=== PATIENT | female | born 1985 | race Caucasian/White ===

== ENCOUNTER → 2018-10-29 | Outpatient (CLI) | payer BC | LOC: OD 12:30 | PROVIDERS: ATTEND Obstetrics & Gynecology Reproductive Endocrinology | DX: Z32.01 Encounter for pregnancy test, result positive (principal) | CPT/HCPCS: 36415; 84144; 84702 ==

== ENCOUNTER → 2018-11-01 | Outpatient (CLI) | payer BC | LOC: OD 10:22 | PROVIDERS: ATTEND Obstetrics & Gynecology Reproductive Endocrinology | DX: N97.9 Female infertility, unspecified (principal); Z32.01 Encounter for pregnancy test, result positive | CPT/HCPCS: 36415; 84144; 84702 ==

== ENCOUNTER 2019-06-06 16:26 | Outpatient (CLI) | payer BC ==
--- NOTE | 2019-06-06 17:43 | Non Stress Test Report ---
Non Stress Test Datetime Report Generated by CPN: 06/06/2019 17:43 DEMOGRAPHIC Test Number: 1 EGA NST: 34.6 INDICATION Indication for Study (NST) Other: Repeat NST, NR in office VITAL SIGNS Temperature - NST: 98.8 Pulse - NST: 80 RESP - NST: 16 NBPSYS NST: 111 NBPDIA NST: 56 MONITORING Monitor Explained: Monitor Explained; Test Explained; Patient Verbalized Understanding Time on Monitor: 06/06/2019 16:52 Time off Monitor: 06/06/2019 17:38 NST Duration: 46 NST INTERVENTIONS NST Interventions: PO Hydration; Reposition Patient BABY A: [id number] BABY A Movement : Present Contraction Frequency : 0 FHR Baseline : 125 Accelerations : 15X15 Decelerations : None Variability : Moderate 6-25bpm NST Review: Meets Criteria for Reactive NST NST Review and Verified By : Ismael Wolfe RN NST Results: Reactive NST REPORT Report Trigger: Send Report
== END 2019-06-06 17:40 | disposition home or self-care (01) ==
LOC: LC 16:26
PROVIDERS: ATTEND Obstetrics & Gynecology
PROC: 4A1HXCZ Monitoring of Products of Conception, Cardiac Rate, External Approach (ICD-10-PCS; principal; 2019-06-06)
DX: O09.523 Supervision of elderly multigravida, third trimester (principal); Z3A.34 34 weeks gestation of pregnancy
CPT/HCPCS: 59025

== ENCOUNTER 2019-07-15 04:40 | Outpatient (CLI) | payer BC ==
[2019-07-15 05:47] LABS: APPEARANCE,URINE CLEAR; BILIRUBIN,URINE NEGATIVE (NEGATIVE); COLOR,URINE YELLOW; GLUCOSE, URINE NEGATIVE (NEGATIVE); KETONES,URINE NEGATIVE (NEGATIVE); LEUKOCYTE ESTERASE,URINE SMALL (NEGATIVE); NITRITE,URINE NEGATIVE (NEGATIVE); PROTEIN,URINE NEGATIVE (NEGATIVE); UROBILINOGEN,URINE NEGATIVE mg/dL (<2.0)
--- NOTE | 2019-07-15 05:54 | Non Stress Test Report ---
Non Stress Test Datetime Report Generated by CPN: 07/15/2019 05:54 DEMOGRAPHIC EGA NST: 40.3 INDICATION Indication for Study (NST) Other: LC- decreased movement MONITORING Monitor Explained: Monitor Explained; Test Explained; Patient Verbalized Understanding Time on Monitor: 07/15/2019 04:44 Time off Monitor: 07/15/2019 05:53 NST Duration: 69 NST INTERVENTIONS NST Interventions: PO Hydration; Reposition Patient Physician Notified NST: Dr. Geiger BABY A: [id number] BABY A Movement : Present Contraction Frequency : irritability FHR Baseline : 130 Accelerations : 15X15 Decelerations : None Variability : Moderate 6-25bpm NST Review: Meets Criteria for Reactive NST NST Review and Verified By : TOMMIE Omer Results: Reactive NST REPORT Report Trigger: Send Report
[2019-07-15 06:02] LABS: URINE AMPHETAMINES SCREEN NEGATIVE; URINE BARBITURATES SCREEN NEGATIVE; URINE BENZODIAZEPINES SCREEN NEGATIVE; URINE COCAINE SCREEN NEGATIVE; URINE MARIJUANA (THC) SCREEN NEGATIVE; URINE METHADONE SCREEN NEGATIVE; URINE PHENCYCLIDINE SCREEN NEGATIVE
== END 2019-07-15 05:55 | disposition home or self-care (01) ==
LOC: LC 04:40
PROVIDERS: ATTEND Student in an Organized Health Care Education/Training Program
DX: O36.8130 Decreased fetal movements, third trimester, not applicable or unspecified (principal); Z3A.40 40 weeks gestation of pregnancy
CPT/HCPCS: 59025; 80307; 81005

== ENCOUNTER 2019-07-16 05:37 | Inpatient (IN) | payer BC ==
[2019-07-16] MEDS ORDERED: CEFAZOLIN 2 GM/D5W RTU 2 GM/50 ML RTUPB IV PRN (06:09)
[2019-07-16] MEDS ORDERED: RINGERS SOLUTION,LACTATED 1,000 ML IV PRN ×2 (06:09→09:10)
[2019-07-16] MEDS ORDERED: RINGERS SOLUTION,LACTATED 1,000 ML IV ONE (06:15)
[2019-07-16 06:55] LABS: ABSOLUTE BASOPHILS # (AUTO) 0.1 10^3/uL (0.0-0.2); ABSOLUTE EOSINOPHILS # (AUTO) 0.1 10^3/uL (0.0-0.6); ABSOLUTE LYMPHOCYTES (AUTO) 2.6 10^3/uL (0.5-4.7); ABSOLUTE MONOCYTES (AUTO) 1.3 10^3/uL (0.1-1.4); BASOPHILS % (AUTO) 0.8 % (0-2); EOSINOPHILS % (AUTO) 0.4 % (0-6); HEMATOCRIT 38.3 % (36.0-47.0); HEMOGLOBIN 13.5 g/dL (12.0-15.5); LYMPHOCYTES % (AUTO) 18.5 % (13-45); MEAN CORPUSCULAR HEMOGLOBIN 32.8 pg (27.0-33.4); MEAN CORPUSCULAR HGB CONC 35.2 g/dL (32.0-36.0); MEAN CORPUSCULAR VOLUME 93 fl (80-97); MONOCYTES % (AUTO) 9.1 % (3-13); RED BLOOD COUNT 4.11 10^6/uL (3.72-5.28); SEGMENTED NEUTROPHILS % (AUTO) 71.2 % (42-78); TOTAL CELLS COUNTED % (AUTO) 100 %; WHITE BLOOD COUNT 14.1 10^3/uL (4.0-10.5)
[2019-07-16 07:23] LABS: PLATELET COUNT 180 10^3/uL (150-450)
[2019-07-16] MEDS ORDERED: CEFAZOLIN SODIUM 2 GM in DEXTROSE 5%-WATER 100 ML IV ONE (07:30)
[2019-07-16] MEDS ORDERED: PHENYLEPHRINE HCL INJ/PF 10 MG/1 ML SDV ONE (07:41)
[2019-07-16] MEDS ORDERED: MIDAZOLAM 2 MG/2 ML INJ ONE (07:41)
[2019-07-16] MEDS ORDERED: OXYTOCIN 10 UNIT/ML VIAL ONE (07:41)
[2019-07-16] MEDS ORDERED: GLYCOPYRROLATE INJ 0.4 MG/2 ML VIAL ONE (07:41)
[2019-07-16] MEDS ORDERED: KETOROLAC TROMETHAMINE INJ/PF 30 MG/1 ML SDV ONE (07:41)
[2019-07-16] MEDS ORDERED: ONDANSETRON HCL INJ/PF 4 MG/2 ML SDV ONE (07:41)
[2019-07-16] MEDS ORDERED: OXYTOCIN/NORMAL SALINE 20 UNIT/1,000 ML RTUINJ ONE (07:41)
[2019-07-16] MEDS ORDERED: EPHEDRINE SULFATE INJ 50 MG/1 ML AMPULE ONE (07:41)
[2019-07-16] MEDS ORDERED: FENTANYL CITRATE INJ/PF 100 MCG/2 ML AMPUL ONE (07:41)
[2019-07-16] MEDS ORDERED: MEPERIDINE HCL/PF INJ 25 MG/1 ML DISP.SYRIN IV PRN (08:31)
[2019-07-16] MEDS ORDERED: FENTANYL CITRATE INJ/PF 100 MCG/2 ML AMPUL IV PRN ×3 (08:31)
[2019-07-16] MEDS ORDERED: OXYCODONE-ACETAMINOPHEN 5-325 MG TABLET PO PRN ×4 (08:31→09:10)
[2019-07-16] MEDS ORDERED: PROMETHAZINE HCL INJ 25 MG/1 ML VIAL IV PRN ×3 (08:31→09:10)
[2019-07-16] MEDS ORDERED: DIPHENHYDRAMINE HCL 50 MG/ML VIAL IV PRN (08:31)
[2019-07-16] MEDS ORDERED: MORPHINE SULFATE 10 MG/ML INJ IV PRN (08:31)
[2019-07-16] MEDS ORDERED: HYDROMORPHONE HCL INJ/PF 2 MG/ML AMPULE IV PRN (09:10)
[2019-07-16] MEDS ORDERED: NORMAL SALINE IV PRN (09:10)
[2019-07-16] MEDS ORDERED: ACETAMINOPHEN 1,000 MG/100 ML RTUPB IV PRN (09:10)
[2019-07-16] MEDS ORDERED: MEASLES,MUMPS&RUBELLA VACC/PF 0.5 ML VIAL SUBCUT PRN (09:10)
[2019-07-16] MEDS ORDERED: SIMETHICONE 80 MG TAB.CHEW PO PRN (09:10)
[2019-07-16] MEDS ORDERED: DIPH/PERTUSS(ACELL)/TETANUS VAC/PF 0.5 ML SYR (>=10YO) IM PRN (09:10)
[2019-07-16] MEDS ORDERED: ACETAMINOPHEN 325 MG TABLET PO PRN (09:10)
[2019-07-16] MEDS ORDERED: OXYTOCIN IV PRN (09:10)
--- NOTE | 2019-07-16 09:16 | Operative Report ---
Operative Report DATE OF SURGERY: 07/16/19 PREOPERATIVE DIAGNOSIS: Repeat to prevent risk of uterine rupture POSTOPERATIVE DIAGNOSIS: Same OPERATION: Repeat via low transverse uterine incision SURGEON: DEVON CAMPBELL ANESTHESIA: Spinal TISSUE REMOVED OR ALTERED: Placenta COMPLICATIONS: None ESTIMATED BLOOD LOSS: 450 cc INTRAOPERATIVE FINDINGS: Viable male crying at delivery. Normal uterus tubes and ovaries PROCEDURE: Patient was taken to the OR and placed in supine position after her spinal anesthesia. She is prepared and draped in sterile fashion. Goldstein was placed for drainage of the bladder. Low transverse incision was made and carried down the level of the fascia. The fascial incision was made with knife and extended bilaterally with curved Mckeon scissors. The fascia was off the rectus muscles using sharp and blunt dissection. The rectus muscles are in the midline. The peritoneum was entered without incident. Bladder blade was placed in uterine segment was identified. A low transverse incision was made creating a bladder flap. Bladder blade was placed low transverse uterine incision was made with the knife and extended with fingertips. The baby was delivered with some fundal pressure. Mouth and nose were suctioned free. The cord is doubly clamped and cut. Baby is passed off to the patient attendant in attendance. The placenta was manually extracted with trailing membranes. The uterus was externalized wrapped in a moist lap sponge. Uterine contents wiped free. Uterus was closed with a running locking layer of 0 chromic suture using the second layer to imbricate the first completing a double layer closure of the uterus. The serosa was closed with a running 2-0 chromic stitch. The pelvis was irrigated and suctioned free of fluid the uterus was replaced in the abdomen. The abdominal wall peritoneum was closed with running 2-0 chromic stitch. Fascia was closed with a running 0 Vicryl in 2 segments. Aaron's layer was brought together with 0 plain gut stitch and the skin was closed with running subcuticular 4-0 undyed Vicryl stitch. The wound was dressed mother and baby did well.
[2019-07-16] MEDS ORDERED: BUPIVACAINE HCL 0.5 % INJ/PF 30 ML SDV ONE (09:17)
[2019-07-16] MEDS ORDERED: MISOPROSTOL 0.2 MG TABLET ONE (09:46)
[2019-07-16] MEDS ORDERED: MISOPROSTOL 0.2 MG TABLET PR ONE (09:48)
[2019-07-16] MEDS ORDERED: ACETAMINOPHEN 1,000 MG/100 ML RTUPB IV ONE (10:09)
[2019-07-16] MEDS: DOCUSATE SODIUM 100 MG CAPSULE PO SCH ×2 (19:29)
[2019-07-16] MEDS: KETOROLAC TROMETHAMINE INJ/PF 30 MG/1 ML SDV IV SCH ×2 (21:41)
[2019-07-17] MEDS: KETOROLAC TROMETHAMINE INJ/PF 30 MG/1 ML SDV IV SCH (05:29)
[2019-07-17 06:51] LABS: HEMATOCRIT 35.7 % (36.0-47.0); HEMOGLOBIN 12.4 g/dL (12.0-15.5); MEAN CORPUSCULAR HEMOGLOBIN 32.4 pg (27.0-33.4); MEAN CORPUSCULAR HGB CONC 34.7 g/dL (32.0-36.0); MEAN CORPUSCULAR VOLUME 93 fl (80-97); PLATELET COUNT 181 10^3/uL (150-450); RED BLOOD COUNT 3.83 10^6/uL (3.72-5.28); RED CELL DISTRIBUTION WIDTH 14.1 % (11.5-14.0); WHITE BLOOD COUNT 14.9 10^3/uL (4.0-10.5)
[2019-07-17] MEDS: PRENATAL VITAMIN W DHA CAPSULE PO SCH ×2 (08:04→10:28)
--- NOTE | 2019-07-17 10:18 | PDOC PROGRESS REPORT ---
Subjective-OB Progress Note for:: 07/17/19 - POD #1, doing well, , A+ Rubella Immune, s/p Rpt , UOB voiding Physical Exam (OB) Vital Signs: Temp Pulse Resp BP Pulse Ox 98.7 F 69 16 120/70 100 07/17/19 07:34 07/17/19 07:34 07/17/19 07:34 07/17/19 07:34 07/17/19 07:34 Intake & Output 07/16/19 07/17/19 07/18/19 06:59 06:59 06:59 Intake Total 1500 Output Total 1350 Balance 150 Weight 79.8 kg - General General Appearance: Appears well, Alert In distress: None - PIH/Pre-Eclampsia DTR's: 2 + Clonus: Negative Headache: Absent Epigastric Pain: No Visual Changes: No - Dressing Removed: No - opsite covering brenda Incision: Draining, Well Approximated Closure Type: Brenda - Lochia Lochia Amount: Small 10-25 ml Lochia Color: Rubra/Red - Abdomen Description: Tender, Soft Hernia Present: No Fundal Description: Firm, Midline Fundal Height: u/u - u/2 - Respiratory Respiratory Status: No respiratory distress Breath sounds: Clear - Cardiovascular Rhythm: Regular - Abdominal Distension: No distension Tenderness: Nontender Abdominal Notes: BS present but hypoactive - Genitourinary Genitourinary Note: voiding - Extremities Upper extremity: Normal inspection Lower extremities: Normal inspection - Neurological Cognition: Normal Orientation: AAOx4 - Psychological Associated symptoms: Normal affect, Normal mood - Skin Skin Temperature: Warm Skin Moisture: Dry Objective-Diagnostic Laboratory: 07/17/19 06:26 07/17/19 06:26 WBC 14.9 H RBC 3.83 Hgb 12.4 Hct 35.7 L MCV 93 MCH 32.4 MCHC 34.7 RDW 14.1 H Plt Count 181 Assessment and Plan(PN) - Time Spent with Patient Time with patient: Less than 15 minutes Medications reviewed and adjusted accordingly: Yes - Disposition Anticipated Discharge: Home Within: within 48 hours
[2019-07-17] MEDS: DOCUSATE SODIUM 100 MG CAPSULE PO SCH ×2 (10:28→17:48)
[2019-07-17] MEDS: IBUPROFEN 800 MG TABLET PO SCH ×2 (11:51→17:48)
[2019-07-18] MEDS: IBUPROFEN 800 MG TABLET PO SCH ×3 (00:03→11:39)
[2019-07-18] MEDS: DOCUSATE SODIUM 100 MG CAPSULE PO SCH (09:45)
[2019-07-18] MEDS: PRENATAL VITAMIN W DHA CAPSULE PO SCH (09:45)
--- NOTE | 2019-07-18 10:06 | PDOC DISCHARGE SUMMARY ---
Impression - Admit/DC Date/PCP Admission Date/Primary Care Provider: 07/16/19 05:37 LEXII CERRATO MD Discharge Date: 07/18/19 - POD #2, s/p Rpt , pt doing well and desires to go home today - Discharge Diagnosis (1) Normal course Is this a current diagnosis for this admission?: Yes (2) delivery delivered Is this a current diagnosis for this admission?: Yes - Additional Information Resuscitation Status: Full Code Discharge Diet: As Tolerated, Regular Discharge Activity: Activity As Tolerated, No Driving, No Lifting Over 10 Pounds, Pelvic Rest Referrals: LEXII CERRATO MD [Primary Care Provider] - Prescriptions: Ibuprofen [Motrin 800 mg Tablet] 800 mg PO Q8 #60 tablet Oxycodone HCl/Acetaminophen [Percocet 5-325 mg Tablet] 1 tab PO Q4HP PRN #30 tablet PRN Reason: Pain Scale Of 4 Home Medications: Pnv95/Iron Fum/Folic Acid [ Caplet] 1 tab PO DAILY 08/13/15 Ferrous Sulfate [Feosol 325 mg Tablet] 1 tab PO DAILY 06/06/19 Ibuprofen [Motrin 800 mg Tablet] 800 mg PO Q8 #60 tablet 07/18/19 Oxycodone HCl/Acetaminophen [Percocet 5-325 mg Tablet] 1 tab PO Q4HP PRN #30 tablet 07/18/19 HPI Reason(s) for Admission: Ceasarean Section-Repeat Procedures: Ultrasound Intrapartum Procedure(s): : Low Cervical, Transverse Hospital Course Hospital Course: routine Results Laboratory Results: WBC 14.9 10^3/uL (4.0-10.5) H 07/17/19 06:26 RBC 3.83 10^6/uL (3.72-5.28) 07/17/19 06:26 Hgb 12.4 g/dL (12.0-15.5) 07/17/19 06:26 Hct 35.7 % (36.0-47.0) L 07/17/19 06:26 MCV 93 fl (80-97) 07/17/19 06:26 MCH 32.4 pg (27.0-33.4) 07/17/19 06:26 MCHC 34.7 g/dL (32.0-36.0) 07/17/19 06:26 RDW 14.1 % (11.5-14.0) H 07/17/19 06:26 Plt Count 181 10^3/uL (150-450) 07/17/19 06:26 Lymph % (Auto) 18.5 % (13-45) 07/16/19 06:22 Gillespie % (Auto) 9.1 % (3-13) 07/16/19 06:22 Eos % (Auto) 0.4 % (0-6) 07/16/19 06:22 Baso % (Auto) 0.8 % (0-2) 07/16/19 06:22 Absolute Neuts (auto) 10.0 10^3/uL (1.7-8.2) H 07/16/19 06:22 Absolute Lymphs (auto) 2.6 10^3/uL (0.5-4.7) 07/16/19 06:22 Absolute Monos (auto) 1.3 10^3/uL (0.1-1.4) 07/16/19 06:22 Absolute Eos (auto) 0.1 10^3/uL (0.0-0.6) 07/16/19 06:22 Absolute Basos (auto) 0.1 10^3/uL (0.0-0.2) 07/16/19 06:22 Seg Neutrophils % 71.2 % (42-78) 07/16/19 06:22 Blood Type A POSITIVE 07/16/19 06:22 Antibody Screen NEGATIVE 07/16/19 06:22 Plan Plan of Treatment: d/c home, f/up in one week w/ [facility] for incision check Time Spent: Less than 30 Minutes
[2019-07-18 11:28] VITALS: BP 119/72
== END 2019-07-18 12:35 | disposition home or self-care (01) | DRG 786 ==
LOC: 2S 05:37
PROVIDERS: ADMIT Obstetrics & Gynecology; ATTEND Obstetrics & Gynecology
PROC: 10D00Z1 Extraction of Products of Conception, Low, Open Approach (ICD-10-PCS; principal; 2019-07-16 07:45)
DX: O34.211 Maternal care for low transverse scar from previous cesarean delivery (principal); O99.42 Diseases of the circulatory system complicating childbirth; O48.0 Post-term pregnancy; N85.8 Other specified noninflammatory disorders of uterus; I34.1 Nonrheumatic mitral (valve) prolapse; Z3A.40 40 weeks gestation of pregnancy; Z37.0 Single live birth
CPT/HCPCS: 1961; 36415; 59025; 85025; 85027; 86850; 86900; 86901; 94760; 94799; J0131; J1170; J1885; J2250; J2370; J2405; J2590; J3010; J3490; J7120